=== PATIENT | male | born 1980 | race Caucasian/White ===

== ENCOUNTER 2024-04-29 07:59 | Outpatient (CLI) | payer BC, SELFPAY ==
--- NOTE | 2024-04-29 08:15 | CRLHL7_ITS ---
For Patients: As a result of the Century Cures Act, medical imaging exams and procedure reports are released immediately into your electronic medical record. You may view this report before your referring provider. If you have questions, please contact your health care provider. INDICATION: Loss of balance. COMPARISON: 11/08/2016. TECHNIQUE: Multiplanar T1, T2, FLAIR and diffusion-weighted imaging. Post gadolinium T1 weighted sequences. Additional pre and post gadolinium sequences of the skullbase and IAC`s. FINDINGS: Normal brain parenchymal morphology and signal intensity. No intracranial hemorrhage. No abnormal ventricular dilatation. Intracranial vascular flow voids are preserved. No mass effect. No midline shift. No restricted diffusion to suggest acute ischemia. No abnormal enhancement or enhancing lesions with the brain parenchyma. Dedicated sequence of the skullbase and IAC`s demonstrates normal course of cranial nerves 7 and 8 from the root entry zone to the fundus of the IAC`s. Normal fluid signal within the cochlea and vestibule. Normal root entry zone of the bilateral trigeminal nerves. No abnormal mass or enhancement within cerebellopontine angles or IAC`s. Bilateral orbits are unremarkable. Normal appearing sella. Visualized paranasal sinuses mastoid air cells are unremarkable. IMPRESSION: 1. No acute intracranial abnormality. 2. Normal brain parenchymal morphology and signal intensity. 3. No abnormal enhancement or enhancing lesions. 4. Dedicated sequences of the skull base nice ease demonstrates normal course of the cranial nerves. No abnormal mass or enhancement Dictated by Rajesh Musa MD @ 04/30/2024 8:43:17 AM (Electronically Signed)
== END 2024-04-29 08:00 | disposition home or self-care (01) ==
LOC: MRI 08:02
PROVIDERS: PCP Surgery; Visit Provider Surgery
DX: R26.89 Other abnormalities of gait and mobility (principal)
CPT/HCPCS: 70553; A9575